=== PATIENT | male | born 1990 | race American Indian/Alaskan Native ===

== ENCOUNTER 2021-11-02 22:38 | Emergency (ER) | payer OTHER ==
[2021-11-02 22:41] VITALS: BP 131/96
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
== END 2021-11-03 02:45 | disposition home or self-care (01) ==
LOC: ED 22:38
DX: S93.402A Sprain of unspecified ligament of left ankle, initial encounter (principal); S71.101A Unspecified open wound, right thigh, initial encounter; V49.88XA Car occupant (driver) (passenger) injured in other specified transport accidents, initial encounter; Y93.89 Activity, other specified; Y92.89 Other specified places as the place of occurrence of the external cause; Y99.8 Other external cause status
CPT/HCPCS: 99283